=== PATIENT | female | born 2000 | race Caucasian/White ===

== ENCOUNTER 2024-06-25 21:33 | Emergency (ER) | payer OTHER, SELFPAY ==
[2024-06-25] MEDS ORDERED: predniSONE 20 MG TAB ONE (22:00)
== END 2024-06-25 22:19 | disposition home or self-care (01) ==
LOC: CSHERS 21:33
DX: J02.9 Acute pharyngitis, unspecified (principal)
CPT/HCPCS: 99283; J7512

== ENCOUNTER 2024-07-01 21:04 | Emergency (ER) | payer OTHER ==
[2024-07-01] MEDS ORDERED: Dexamethasone 10 MG/ML VIAL ONE (21:34)
== END 2024-07-01 21:44 | disposition home or self-care (01) ==
LOC: CSHERS 21:04
DX: J20.9 Acute bronchitis, unspecified (principal); F17.200 Nicotine dependence, unspecified, uncomplicated
CPT/HCPCS: 96372; 99283; J1100

== ENCOUNTER 2024-09-05 09:18 | Emergency (ER) | payer OTHER ==
[2024-09-05 10:29] LABS: #Basophils 0.09 10x3/uL (0.0-0.2); #Eosinophils 0.13 10x3/uL (0.0-0.5); #Monocytes 1.42 10x3/uL (0.0-1.1); #Neutrophils 8.44 10x3/uL (1.5-8.4); %Basophils 0.7 % (0.0-2.0); %Eosinophils 1.1 % (0.0-6.0); %Lymphocytes 17.9 % (18.0-47.0); %Monocytes 11.5 % (0.0-10.0); %Neutrophils 68.2 % (40.0-75.0); Hematocrit 39.5 % (34.9-44.5); Hemoglobin 12.3 g/dL (12.0-15.5); Mean Corpuscular HGB CONC 31.1 g/dL (32.0-36.0); Mean Corpuscular Hemoglobin 25.4 pg (27.0-33.0); Mean Corpuscular Volume 81.6 fL (81.6-98.3); Mean Platelet Volume 8.9 fL (7.4-10.4); Platelet Count 379 10x3/uL (150-450); RBC Distribution Width 13.9 % (11.5-14.5); Red Blood Cell (RBC) Count 4.84 10x6/uL (3.90-5.03); White Blood Cell (WBC) Count 12.37 10x3/uL (3.5-10.5)
[2024-09-05 10:40] LABS: BHCG - Serum Negative (NEGATIVE); Pregs Control Background? CLEAR/WHITE (CLR/WHITE); Pregs Control Bar Appear? YES (CONTROL BAR)
[2024-09-05 10:48] LABS: ALT (SGPT) 13 U/L (Less than 34); AST (SGOT) 17 U/L (11-34); Alkaline Phosphatase 69 U/L (40-110); Anion Gap 11 mmol/L (10-20); BUN (Urea Nitrogen) 11 mg/dL (7.0-18.7); Bilirubin, Total 0.2 mg/dL (0.3-1.2); Calc. Creatinine Clearance 0 mL/min (70-130); Calcium 8.7 mg/dL (7.8-10.44); Carbon Dioxide 23 mmol/L (22-29); Chloride 109 mmol/L (98-107); Estimated GFR 113; Globulin 3.2 g/dL (2.4-3.5); Glucose 82 mg/dL (70-105); Lipase 26 U/L (8-78); Protein, Total 7.2 g/dL (6.0-8.3); Sodium 139 mmol/L (136-145)
[2024-09-05 13:13] LABS: Bilirubin Neg (Negative); Blood, Urine Negative (Negative); Glucose, Urine (Dipstick) Normal (Negative); Ketone, Urine Negative (Negative); Leukocyte Negative (Negative); Nitrite Negative (Negative); Protein, Urine (Dipstick) Negative (Neg-Trace); Urobilinogen Normal mg/dL (Less than 2)
[2024-09-05 13:17] LABS: Clarity Clear (Clear)
[2024-09-05 13:20] LABS: Bacteria/HPF Rare-Few HPF (None Seen); CAUTI Indications for Culture Pelvic or flank pain; RBC/HPF None Seen HPF (0-3); WBC/HPF 0-3 HPF (0-3)
[2024-09-05 13:21] LABS: Urine Culture Reflex No No
[2024-09-05] MEDS ORDERED: Azithromycin 250 MG TAB ONE (13:40)
== END 2024-09-05 13:55 | disposition home or self-care (01) ==
LOC: CSHERS 09:18
DX: J18.9 Pneumonia, unspecified organism (principal); F17.200 Nicotine dependence, unspecified, uncomplicated
CPT/HCPCS: 36415; 71045; 80053; 81001; 83690; 84703; 85025; 87428

== ENCOUNTER 2024-09-19 14:52 | Emergency (ER) | payer OTHER, SELFPAY | END 2024-09-19 16:18 | disposition home or self-care (01) | LOC: CSHERS 14:52 | DX: R05.9 Cough, unspecified (principal); R91.1 Solitary pulmonary nodule; F17.290 Nicotine dependence, other tobacco product, uncomplicated | CPT/HCPCS: 71045 ==